=== PATIENT | male | born 1975 | race African-American/Black ===

== ENCOUNTER 2017-01-08 11:05 | Emergency (ER) | payer OTHER ==
[~2017-01-08] VITALS: Ht 190.5 cm; Wt 119.0 kg
[2017-01-08 11:08] VITALS: BP 148/97
== END 2017-01-08 11:52 | disposition home or self-care (01) ==
LOC: ED 11:05
DX: S29.012A Strain of muscle and tendon of back wall of thorax, initial encounter (principal); I10 Essential (primary) hypertension; X50.9XXA Other and unspecified overexertion or strenuous movements or postures, initial encounter; Y93.89 Activity, other specified; Y99.8 Other external cause status; Y92.89 Other specified places as the place of occurrence of the external cause